=== PATIENT | female | born 1995 | race African-American/Black ===

== ENCOUNTER 2019-12-23 19:36 | Emergency (ER) | payer SELFPAY ==
[~2019-12-23] VITALS: Ht 160 cm; Wt 104.5 kg
[2019-12-23 19:43] VITALS: Ht 160 cm; Wt 104.5 kg
[2019-12-23] MEDS ORDERED: BACTRIM DS TAB1 EAC1 PO (21:17)
[2019-12-23] MEDS ORDERED: ULTRAM50 MG PO (21:17)
[2019-12-23 21:36] VITALS: BP 112/70
== END 2019-12-23 21:36 | disposition home or self-care (01) ==
LOC: D.ER 19:36
DX: L03.317 Cellulitis of buttock (principal)